=== PATIENT | female | born 1995 | race Caucasian/White ===

== ENCOUNTER 2017-11-29 09:25 | Inpatient (IN) | payer OTHER ==
[2017-11-29] MEDS ORDERED: MISOPROSTOL 200 MCG TAB PR (11:30)
[2017-11-29] MEDS ORDERED: BUTORPHANOL 2 MG INJ IV (11:30)
[2017-11-29] MEDS ORDERED: IBUPROFEN 600 MG TAB PO (11:30)
[2017-11-29] MEDS ORDERED: CARBOPROST 250 MCG INJ IM (11:30)
[2017-11-29] MEDS ORDERED: OXYTOCIN 30 UNITS/LR 500 ML IV ×3 (11:30)
[2017-11-29] MEDS ORDERED: LIDOCAINE 1% (MPF) 30 ML INJ INJ (11:30)
[2017-11-29] MEDS ORDERED: METHYLERGONOVINE 0.2 MG INJ IM (11:30)
[2017-11-29] MEDS: LACTATED RINGER'S 1,000 ML IV ×4 (12:36→20:37)
[2017-11-29] MEDS: DINOPROSTONE 10 MG VAG SUPP VAG (12:49)
[2017-11-29 13:18] LABS: ADD MAN DIFF? NO
[2017-11-29 13:24] LABS: WHITE BLOOD COUNT 12.5 10^3/ul (4.8-10.8)
[2017-11-29 13:24] LABS: BASOPHILS % 0.1 % (0.0-2.0); EOSINOPHILS # 0.1 10^3/ul (0.0-0.5); EOSINOPHILS % 0.7 % (0.0-7.0); HEMATOCRIT 36.6 % (37.0-47.0); LYMPHOCYTES % 24.1 % (15.0-51.0); MEAN CORPUSCULAR HEMOGLOBIN 25.2 pg (29.0-33.0); MEAN CORPUSCULAR HGB CONC 32.8 g/dl (32.0-37.0); MEAN CORPUSCULAR VOLUME 76.9 fl (82.0-101.0); MEAN PLATELET VOLUME 12.2 fl (7.4-10.4); MONOCYTE # 0.6 10^3/ul (0.3-0.9); NEUTROPHIL # 8.7 10^3/ul (1.6-7.5); NEUTROPHILS % 69.6 % (39.0-77.0); PLATELET COUNT 258 10^3/UL (140-415); RED BLOOD COUNT 4.76 10^6/ul (4.20-5.40); RED CELL DISTRIBUTION WIDTH 14.8 % (11.5-14.5)
[2017-11-29 13:36] LABS: INR 0.98; PROTIME 13.1 Sec (11.9-14.9)
[2017-11-29 13:37] LABS: PARTIAL THROMBOPLASTIN TIME 28.6 Sec (25.0-35.0)
[2017-11-29 14:38] LABS: HEPATITIS B SURFACE ANTIGEN NEGATIVE (NEGATIVE)
[2017-11-29 14:44] LABS: AMPHETAMINE/METHAMPHETAMINE Negative (NEGATIVE); BARBITURATES Negative (NEGATIVE); BENZODIAZEPINES Negative (NEGATIVE); CANNABINOIDS Negative (NEGATIVE); COCAINE Negative (NEGATIVE); OPIATES Negative (NEGATIVE)
[2017-11-29] MEDS ORDERED: AMPICILLIN 1 GM/NS (PMX) 50 ML IV (15:30)
[2017-11-29] MEDS: OXYTOCIN 30 UNITS/LR 500 ML IV (18:38)
[2017-11-29 22:05] LABS: RAPID PLASMA REAGIN NONREACTIVE (NR)
[2017-11-30] MEDS: BUTORPHANOL 2 MG INJ IV (01:30)
[2017-11-30] MEDS: LACTATED RINGER'S 1,000 ML IV ×2 (04:49→07:10)
[2017-11-30] MEDS ORDERED: FENTAnyl 2MCG/ML-ROPIV 0.2% 100 ML (07:02)
[2017-11-30] MEDS: AMPICILLIN 2 GM/NS (PMX) 100 ML IV (07:25)
[2017-11-30] MEDS: MINERAL OIL LIGHT 10 ML VIAL TOP (08:30)
[2017-11-30] MEDS: LACTATED RINGER'S 1,000 ML IV* (13:56)
[2017-11-30] MEDS ORDERED: METHYLERGONOVINE 0.2 MG INJ IM (14:00)
[2017-11-30] MEDS ORDERED: MISOPROSTOL 200 MCG TAB PR (14:00)
[2017-11-30] MEDS ORDERED: ZOLPIDEM 5 MG TAB PO (14:00)
[2017-11-30] MEDS ORDERED: CARBOPROST 250 MCG INJ IM (14:00)
[2017-11-30] MEDS ORDERED: OXYTOCIN 30 UNITS/LR 500 ML IV (14:00)
[2017-11-30] MEDS ORDERED: OXYCODONE/ASPIRIN (4.88/325) TAB PO ×2 (14:00)
[2017-11-30] MEDS: OXYTOCIN 30 UNITS/LR 500 ML IV (15:27)
[2017-11-30] MEDS: CEPHALEXIN 500 MG CAP PO (17:17)
[2017-11-30] MEDS: IBUPROFEN 600 MG TAB PO (17:18)
[2017-11-30] MEDS: LANOLIN 7 GM TUBE TOP (21:22)
[2017-11-30] MEDS: BENZOCAINE 20% 56 ML SPRAY TOP (21:22)
[2017-11-30] MEDS: SENNA/DOCUSATE NA (8.6MG/50MG) TAB PO (21:22)
[2017-11-30] MEDS: WITCH HAZEL/GLYCERIN PAD PR (21:22)
[2017-12-01] MEDS: CEPHALEXIN 500 MG CAP PO ×4 (00:18→17:25)
[2017-12-01] MEDS: IBUPROFEN 600 MG TAB PO ×5 (00:18→23:42)
[2017-12-01] MEDS: LACTATED RINGER'S 1,000 ML IV* ×3 (05:19→13:56)
[2017-12-01 08:25] LABS: ADD MAN DIFF? NO
[2017-12-01 08:36] LABS: BASOPHILS % 0.1 % (0.0-2.0); EOSINOPHILS # 0.2 10^3/ul (0.0-0.5); HEMOGLOBIN 10.9 g/dl (12.0-16.0); LYMPHOCYTES # 3.9 10^3/ul (0.8-2.9); LYMPHOCYTES % 23.9 % (15.0-51.0); MEAN CORPUSCULAR HEMOGLOBIN 24.8 pg (29.0-33.0); MEAN CORPUSCULAR HGB CONC 32.1 g/dl (32.0-37.0); MEAN CORPUSCULAR VOLUME 77.4 fl (82.0-101.0); MONOCYTE # 0.7 10^3/ul (0.3-0.9); MONOCYTES % 4.4 % (0.0-11.0); NEUTROPHIL # 11.4 10^3/ul (1.6-7.5); NEUTROPHILS % 69.9 % (39.0-77.0); PLATELET COUNT 237 10^3/UL (140-415); RED BLOOD COUNT 4.39 10^6/ul (4.20-5.40)
[2017-12-01 08:36] LABS: WHITE BLOOD COUNT 16.3 10^3/ul (4.8-10.8)
[2017-12-01] MEDS: SENNA/DOCUSATE NA (8.6MG/50MG) TAB PO ×2 (09:29→21:50)
[2017-12-02] MEDS: CEPHALEXIN 500 MG CAP PO ×3 (00:07→11:34)
[2017-12-02] MEDS: IBUPROFEN 600 MG TAB PO ×2 (05:31→11:34)
[2017-12-02] MEDS: DIPHTH/TET/ACEL PERTUSS (ADULT) 0.5 ML VIAL IM* (09:00)
[2017-12-02] MEDS: SENNA/DOCUSATE NA (8.6MG/50MG) TAB PO (09:35)
== END 2017-12-02 14:35 | disposition home or self-care (01) | DRG 775 ==
LOC: L-D 11-30 09:36 → PP1 11-30 13:22 → L-D 09:28
PROVIDERS: Obstetrics & Gynecology
PROC: 10E0XZZ Delivery of Products of Conception, External Approach (ICD-10-PCS; principal; 2017-11-30)
PROC: 0HQ9XZZ Repair Perineum Skin, External Approach (ICD-10-PCS; 2017-11-30)
PROC: 3E033VJ Introduction of Other Hormone into Peripheral Vein, Percutaneous Approach (ICD-10-PCS; 2017-11-30)
DX: O48.0 Post-term pregnancy (principal); O69.81X0 Labor and delivery complicated by cord around neck, without compression, not applicable or unspecified; O70.0 First degree perineal laceration during delivery; Z3A.40 40 weeks gestation of pregnancy; Z37.0 Single live birth
CPT/HCPCS: 62319; 76815; 76818; 80307; 85025; 85610; 85730; 86592; 86850; 86900; 86901; 87340; 99464